=== PATIENT | female | born 2000 | race Two or more races ===

== ENCOUNTER 2018-06-17 15:07 | Outpatient (CLI) | payer OTHER ==
[~2018-06-17] VITALS: Ht 160 cm; Wt 74.8 kg
[2018-06-17] MEDS ORDERED: BETAMETHASONE 6 MG/ML, 5ML IM ONE ×2 (15:24→15:30)
[2018-06-17] MEDS ORDERED: PNV11TAB5 PO (15:27)
[2018-06-17] MEDS ORDERED: iron PO (15:27)
[2018-06-17 15:36] LABS: BASOPHILS # (AUTO) 0.03 x10^3/uL (0-0.3); BASOPHILS % (AUTO) 0 % (0-1); EOSINOPHILS # (AUTO) 0.12 x10^3/uL (0-0.8); EOSINOPHILS % (AUTO) 1 % (1-7); LYMPHOCYTES # (AUTO) 1.95 x10^3/uL (1-6.1); LYMPHOCYTES % (AUTO) 19 % (22-44); MD NO; MEAN CORPUSCULAR HEMOGLOBIN 32.4 pg (27.0-34.8); MEAN CORPUSCULAR HGB CONC 34.9 g/dL (32.4-35.8); MEAN CORPUSCULAR VOLUME 92.7 fL (80-100); MEAN PLATELET VOLUME 9.5 fL (7.4-10.4); MONOCYTES # (AUTO) 0.55 x10^3/uL (0-1.4); MONOCYTES % (AUTO) 5 % (2-9); NEUTROPHILS # (AUTO) 7.74 x10^3/uL (1.8-8.0); NEUTROPHILS % (AUTO) 75 % (42-75); PLATELET COUNT 206 x10^3/uL (130-400); RED BLOOD COUNT 3.67 x10^6/uL (3.82-5.3); RED CELL DISTRIBUTION WIDTH 12.9 % (9.6-15.2)
[2018-06-17 15:44] LABS: ALANINE AMINOTRANSFERASE 26 U/L (12-78); ALBUMIN 2.3 g/dL (3.4-5.0); ANION GAP 10 mmol/L (5-15); CALCIUM 8.3 mg/dL (8.5-10.1); CHLORIDE 109 mmol/L (98-107); CREATININE 0.58 mg/dL (0.55-1.02)
[2018-06-17 15:47] LABS: ALKALINE PHOSPHATASE 152 U/L (45-117); BILIRUBIN,TOTAL 0.2 mg/dL (0.2-1.0); TOTAL PROTEIN 6.4 g/dL (6.4-8.2)
[2018-06-17 15:48] LABS: BILIRUBIN, DIRECT < 0.1 mg/dL (0.1-0.2)
[2018-06-17 15:52] LABS: MICROSCOPIC INDICATED
[2018-06-17 15:56] VITALS: BP 154/89
[2018-06-17 16:00] LABS: CREATININE,URINE RANDOM 92.8 mg/dL
[2018-06-17 16:44] LABS: AMPHETAMINE SCREEN, URINE Negative (Negative); BARBITURATE SCREEN, URINE Negative (Negative); BENZODIAZEPINE SCREEN, URINE Negative (Negative); CANNABINOID SCREEN, URINE Negative (Negative); COCAINE SCREEN, URINE Negative (Negative); METHADONE SCREEN, URINE Negative (Negative); OPIATE SCREEN, URINE Negative (Negative)
== END 2018-06-17 18:30 | disposition home or self-care (01) ==
LOC: LDOP 15:07
PROVIDERS: ATTEND Obstetrics & Gynecology
DX: O13.3 Gestational [pregnancy-induced] hypertension without significant proteinuria, third trimester (principal); Z3A.35 35 weeks gestation of pregnancy
CPT/HCPCS: 36415; 59025; 76815; 80053; 80307; 81001; 82248; 82570; 84156; 84550; 85025; 87081; 96372; 99211; J0702; G0463

== ENCOUNTER 2018-06-18 14:54 | Outpatient (CLI) | payer OTHER ==
[~2018-06-18] VITALS: Ht 160 cm; Wt 75.3 kg
[~2018-06-18 14:54] MED LIST: PNV11TAB5 PO; iron PO
[2018-06-18] MEDS ORDERED: BETAMETHASONE 6 MG/ML, 5ML IM ONE (15:00)
[2018-06-18 15:02] VITALS: BP 136/83
[2018-06-18] MEDS ORDERED: PLEASE ENTER HEIGHT AND WEIGHT MC SCH (15:30)
== END 2018-06-18 16:05 | disposition home or self-care (01) ==
LOC: LDOP 14:54
PROVIDERS: ATTEND Obstetrics & Gynecology
DX: O13.3 Gestational [pregnancy-induced] hypertension without significant proteinuria, third trimester (principal); Z3A.35 35 weeks gestation of pregnancy
CPT/HCPCS: 59025; 96372; 99211; J0702; G0463

== ENCOUNTER 2018-06-19 12:49 | Inpatient (IN) | payer MEDICAID, OTHER ==
[~2018-06-19] VITALS: Ht 160 cm; Wt 75.3 kg
[2018-06-19 12:57] VITALS: BP 141/94
[2018-06-19 13:52] LABS: MICROSCOPIC INDICATED
[2018-06-19] MEDS ORDERED: ACETAMINOPHEN 325 MG TABLET PO PRN (14:00)
[2018-06-19 14:05] LABS: ALANINE AMINOTRANSFERASE 29 U/L (12-78); ALBUMIN 2.5 g/dL (3.4-5.0); ANION GAP 13 mmol/L (5-15); CALCIUM 8.2 mg/dL (8.5-10.1); CHLORIDE 108 mmol/L (98-107); CREATININE 0.71 mg/dL (0.55-1.02)
[2018-06-19 14:07] LABS: ALKALINE PHOSPHATASE 145 U/L (45-117); BILIRUBIN,TOTAL 0.2 mg/dL (0.2-1.0); TOTAL PROTEIN 6.6 g/dL (6.4-8.2)
[2018-06-19 14:20] LABS: CULTURE INDICATED? NO
[2018-06-19 14:30] LABS: MEAN CORPUSCULAR HEMOGLOBIN 31.8 pg (27.0-34.8); MEAN CORPUSCULAR HGB CONC 33.9 g/dL (32.4-35.8); MEAN CORPUSCULAR VOLUME 93.9 fL (80-100); MEAN PLATELET VOLUME 9.5 fL (7.4-10.4); PLATELET COUNT 222 x10^3/uL (130-400); RED CELL DISTRIBUTION WIDTH 13.4 % (9.6-15.2)
[2018-06-19 14:33] LABS: BASOPHILS # (AUTO) 0.01 x10^3/uL (0-0.3); BASOPHILS % (AUTO) 0 % (0-1); EOSINOPHILS % (AUTO) 0 % (1-7); LYMPHOCYTES # (AUTO) 1.62 x10^3/uL (1-6.1); LYMPHOCYTES % (AUTO) 9 % (22-44); MD SCAN; MONOCYTES # (AUTO) 0.85 x10^3/uL (0-1.4); MONOCYTES % (AUTO) 5 % (2-9); NEUTROPHILS # (AUTO) 16.37 x10^3/uL (1.8-8.0); NEUTROPHILS % (AUTO) 87 % (42-75)
[2018-06-19] MEDS ORDERED: D5%-LACTATED RINGERS 1,000 ML IV SCH (14:50)
[2018-06-19] MEDS ORDERED: OXYTOCIN 30U/ 0.9% NaCL 500ML 500 ML IV ONE (14:50)
[2018-06-19] MEDS ORDERED: LACTATED RINGERS 1,000 ML IV SCH ×3 (14:50→23:31)
[2018-06-19] MEDS ORDERED: OXYTOCIN 30U/ 0.9% NaCL 500ML 500 ML IV PRN (14:50)
[2018-06-19] MEDS ORDERED: FENTANYL PF 100 MCG/2ML IV PRN (15:00)
[2018-06-19] MEDS ORDERED: FENTANYL PF 100 MCG/2ML IVPush PRN (15:00)
[2018-06-19] MEDS ORDERED: METOCLOPRAMIDE 5 MG/ML, 2ML IVPush PRN (15:00)
[2018-06-19] MEDS ORDERED: TERBUTALINE 1 MG/ML, 1ML IVPush PRN (15:00)
[2018-06-19] MEDS ORDERED: SODIUM CITRATE/CITRIC ACID 30 ML UDC PO PRN (15:00)
[2018-06-19] MEDS ORDERED: ONDANSETRON 2MG/ML, 2ML IVPush PRN (15:00)
[2018-06-19] MEDS ORDERED: NEWBORN KIT ONE (15:09)
[2018-06-19] MEDS ORDERED: MISOPROSTOL 200 MCG TABLET ONE (15:09)
[2018-06-19] MEDS ORDERED: MAGNESIUM SULF. PMX 20GM/500ML 500 ML IV ONE (15:09)
[2018-06-19] MEDS ORDERED: LIDOCAINE/PF 1%, 30ML ONE (15:09)
[2018-06-19] MEDS ORDERED: OXYTOCIN 30U/ 0.9% NaCL 500ML 500 ML ONE (15:09)
[2018-06-19] MEDS ORDERED: MAGNESIUM SULFATE PMX 4GM/100M 100 ML ONE (15:27)
[2018-06-19] MEDS: MAGNESIUM SULF. PMX 20GM/500ML 500 ML IV SCH (15:56)
[2018-06-19] MEDS ORDERED: MAGNESIUM SULFATE PMX 4GM/100M 100 ML IVPB ONE (16:00)
[2018-06-19] MEDS ORDERED: FENTANYL/BUPIV./NS/PF 250 ML EPIDCONT SCH ×2 (21:01→23:31)
[2018-06-19] MEDS ORDERED: LACTATED RINGERS 1,000 ML IVBOLUS PRN (21:30)
[2018-06-19] MEDS ORDERED: ONDANSETRON 2MG/ML, 2ML ONE (21:40)
[2018-06-19] MEDS ORDERED: FENTANYL PF 100 MCG/2ML ONE (22:26)
[2018-06-19] MEDS ORDERED: FENTANYL PF 500 MCG, BUPIVACAINE/PF 0.5%, 30ML 62.5 ML in SODIUM CHLORIDE 0.9% 177.5 ML EPIDCONT SCH ×2 (22:30)
[2018-06-19] MEDS ORDERED: BUPIVACAINE 0.25% ONE (23:01)
[2018-06-20] MEDS ORDERED: LACTATED RINGERS 1,000 ML IVBOLUS PRN
[2018-06-20] MEDS ORDERED: NALOXONE 0.4 MG/ML, 1ML IVPush PRN
[2018-06-20] MEDS ORDERED: ONDANSETRON 2MG/ML, 2ML IVPush PRN
[2018-06-20] MEDS ORDERED: EPHEDRINE 50 MG/ML, 1ML IVPush PRN
[2018-06-20] MEDS ORDERED: DIPHENHYDRAMINE 50 MG/ML, 1ML IVPush PRN
[2018-06-20] MEDS ORDERED: MAGNESIUM SULF. PMX 20GM/500ML 500 ML IV ONE ×2 (00:59→12:03)
[2018-06-20] MEDS ORDERED: CARBOPROST TROMETHAMINE 250 MCG/ML, 1ML IM ONE (02:14)
[2018-06-20] MEDS ORDERED: OXYTOCIN 30U/ 0.9% NaCL 500ML 500 ML ONE ×3 (02:33→05:47)
[2018-06-20] MEDS ORDERED: OXYTOCIN 30U/ 0.9% NaCL 500ML 500 ML IV SCH (02:36)
[2018-06-20] MEDS ORDERED: ONDANSETRON 2MG/ML, 2ML IV PRN (03:00)
[2018-06-20] MEDS ORDERED: DIPH,PERTUSS(ACELL),TET VAC/PF NC IM-VACC PRN (03:00)
[2018-06-20] MEDS ORDERED: ACETAMINOPHEN 325 MG TABLET PO PRN ×2 (03:00)
[2018-06-20] MEDS ORDERED: IBUPROFEN 600 MG TABLET PO PRN (03:00)
[2018-06-20] MEDS ORDERED: RHOGAM FROM BLOOD BANK 1 NOTE EA IM/IV ONE (03:00)
[2018-06-20] MEDS ORDERED: MEASLES,MUMPS&RUBELLA VACC/PF 0.5 ML SQ PRN (03:00)
[2018-06-20] MEDS ORDERED: BISACODYL 10 MG SUPP PR PRN (03:00)
[2018-06-20] MEDS ORDERED: MISOPROSTOL 200 MCG TABLET SL PRN (03:00)
[2018-06-20] MEDS ORDERED: CARBOPROST TROMETHAMINE 250 MCG/ML, 1ML IM PRN (03:00)
[2018-06-20] MEDS ORDERED: ONDANSETRON ODT 4 MG ONE (04:32)
[2018-06-20 07:30] VITALS: BP 125/77
[2018-06-20 07:38] LABS: MEAN CORPUSCULAR HEMOGLOBIN 31.3 pg (27.0-34.8); MEAN CORPUSCULAR HGB CONC 33.8 g/dL (32.4-35.8); MEAN CORPUSCULAR VOLUME 92.6 fL (80-100); MEAN PLATELET VOLUME 9.4 fL (7.4-10.4); PLATELET COUNT 208 x10^3/uL (130-400); RED BLOOD COUNT 2.85 x10^6/uL (3.82-5.3); RED CELL DISTRIBUTION WIDTH 13.2 % (9.6-15.2)
[2018-06-20 08:07] LABS: BASOPHILS # (AUTO) 0.04 x10^3/uL (0-0.3); BASOPHILS % (AUTO) 0 % (0-1); EOSINOPHILS # (AUTO) 0.19 x10^3/uL (0-0.8); EOSINOPHILS % (AUTO) 1 % (1-7); LYMPHOCYTES # (AUTO) 1.77 x10^3/uL (1-6.1); LYMPHOCYTES % (AUTO) 7 % (22-44); MD SCAN; MONOCYTES % (AUTO) 1 % (2-9); NEUTROPHILS # (AUTO) 21.73 x10^3/uL (1.8-8.0); NEUTROPHILS % (AUTO) 90 % (42-75)
[2018-06-20 10:59] VITALS: BP 108/63
[2018-06-20] MEDS ORDERED: PRENATAL VIT/IRON/FA 1 EACH TABLET ONE (12:03)
[2018-06-20] MEDS: PRENATAL VIT/IRON/FA 1 EACH TABLET PO SCH (12:07)
[2018-06-20] MEDS: MAGNESIUM SULF. PMX 20GM/500ML 500 ML IV SCH (12:09)
[2018-06-20 15:26] VITALS: BP 115/68
[2018-06-20 16:50] VITALS: BP 122/76
[2018-06-20 20:40] VITALS: BP 135/73
[2018-06-21 00:20] VITALS: BP 108/66
[2018-06-21 04:15] VITALS: BP 100/62
[2018-06-21 06:47] LABS: MEAN CORPUSCULAR HEMOGLOBIN 31.9 pg (27.0-34.8); MEAN CORPUSCULAR HGB CONC 34.2 g/dL (32.4-35.8); MEAN CORPUSCULAR VOLUME 93.1 fL (80-100); MEAN PLATELET VOLUME 9.4 fL (7.4-10.4); PLATELET COUNT 157 x10^3/uL (130-400); RED BLOOD COUNT 2.37 x10^6/uL (3.82-5.3); RED CELL DISTRIBUTION WIDTH 13.5 % (9.6-15.2)
[2018-06-21 07:40] LABS: BASOPHILS # (AUTO) 0.03 x10^3/uL (0-0.3); BASOPHILS % (AUTO) 0 % (0-1); EOSINOPHILS # (AUTO) 0.05 x10^3/uL (0-0.8); EOSINOPHILS % (AUTO) 0 % (1-7); LYMPHOCYTES # (AUTO) 2.66 x10^3/uL (1-6.1); LYMPHOCYTES % (AUTO) 24 % (22-44); MD SCAN; MONOCYTES # (AUTO) 0.88 x10^3/uL (0-1.4); MONOCYTES % (AUTO) 8 % (2-9); NEUTROPHILS # (AUTO) 7.68 x10^3/uL (1.8-8.0); NEUTROPHILS % (AUTO) 68 % (42-75)
[2018-06-21 08:17] VITALS: BP 122/71
[2018-06-21] MEDS: PRENATAL VIT/IRON/FA 1 EACH TABLET PO SCH (08:29)
[2018-06-21] MEDS: DOCUSATE 100 MG CAPSULE PO PRN (08:37)
[2018-06-21 19:17] VITALS: BP 132/80
[2018-06-22 03:20] VITALS: BP 123/71
[2018-06-22] MEDS: PRENATAL VIT/IRON/FA 1 EACH TABLET PO SCH (07:32)
[2018-06-22] MEDS: DOCUSATE 100 MG CAPSULE PO PRN (07:32)
[2018-06-22 08:00] VITALS: BP 119/75
== END 2018-06-22 19:00 | disposition home or self-care (01) | DRG 807 ==
LOC: LDOP 12:49 → LDIP 15:06 → 2NE 06-20 06:24 → 2NW 06-20 21:19
PROVIDERS: ADMIT Obstetrics & Gynecology; ATTEND Obstetrics & Gynecology
PROC: 10E0XZZ Delivery of Products of Conception, External Approach (ICD-10-PCS; principal; 2018-06-20)
PROC: 3E0R3BZ Introduction of Anesthetic Agent into Spinal Canal, Percutaneous Approach (ICD-10-PCS; 2018-06-20)
PROC: 00HU33Z Insertion of Infusion Device into Spinal Canal, Percutaneous Approach (ICD-10-PCS; 2018-06-20)
DX: O14.14 Severe pre-eclampsia complicating childbirth (principal); Z37.0 Single live birth; O99.284 Endocrine, nutritional and metabolic diseases complicating childbirth; O71.4 Obstetric high vaginal laceration alone; E06.3 Autoimmune thyroiditis; Z3A.36 36 weeks gestation of pregnancy; O72.1 Other immediate postpartum hemorrhage
CPT/HCPCS: 36415; 80053; 81001; 82570; 82803; 83735; 84156; 84550; 85025; 86850; 86900; G0378; J2405; J3010; J3490; J2590; J3475; J7050; J7120